=== PATIENT | female | born 1995 | race Caucasian/White ===

== ENCOUNTER 2018-03-23 21:11 | Emergency (ER) | payer SELFPAY ==
[2018-03-23 21:32] VITALS: BP 129/87
[2018-03-23] MEDS ORDERED: HYDROcodone/ACETAMIN 5-325 MG* 1 TAB PO ONE (22:05)
[2018-03-23] MEDS ORDERED: Amoxicillin PO (*) 500 MG CAP PO ONE (22:05)
--- NOTE | 2018-03-23 22:06 | UC ---
Dental HPI - HPI Summary HPI Summary: patient is to urgent care [facility] with complaints of right lower dental pain. She had a filling fall out about 1 year ago. She did not attend to the dentist, pain began severely today. Patient does have some swelling in her right lower jaw - History of Current Complaint Chief Complaint: UCGeneralIllness Stated Complaint: DENTAL COMPLAINT Time Seen by Provider: 03/23/18 21:58 Hx Obtained From: Patient Hx Last Menstrual Period: 03/11/18 ?: No Onset/Duration: Sudden Onset, Still Present, Worse Since - Today Severity: Severe Pain Intensity: 10 Pain Scale Used: 0-10 Numeric Related History: Previous Dental Care on Same Tooth, Swelling - Allergies/Home Medications Allergies/Adverse Reactions: Allergies Allergy/AdvReac Type Severity Reaction Status Date / Time ibuprofen Allergy Rash And Verified 03/23/18 21:28 Itching PMH/Surg Hx/FS Hx/Imm Hx Previously Healthy: Yes - Surgical History Surgical History: None - Family History Known Family History: Positive: Hypertension - Social History Occupation: Employed Full-time Lives: With Family Alcohol Use: None Substance Use Type: None Smoking Status (MU): Former Smoker Review of Systems Constitutional: Negative Skin: Negative Eyes: Negative ENT: Dental Pain Respiratory: Negative Cardiovascular: Negative Gastrointestinal: Negative Genitourinary: Negative Motor: Negative Neurovascular: Negative Musculoskeletal: Negative Neurological: Negative Psychological: Negative Is Patient Immunocompromised?: No All Other Systems Reviewed And Are Negative: Yes Physical Exam Triage Information Reviewed: Yes Appearance: Well-Appearing, Well-Nourished, Pain Distress Vital Signs: Initial Vital Signs Temp 99.1 F 03/23/18 21:23 Pulse 88 03/23/18 21:23 Resp 18 03/23/18 21:23 BP 129/87 03/23/18 21:23 Pulse Ox 99 03/23/18 21:23 Vital Signs Reviewed: Yes Eye Exam: Normal Eyes: Positive: Conjunctiva Clear ENT Exam: Normal ENT: Positive: Normal ENT inspection, Hearing grossly normal, Pharynx normal, TMs normal, Dental tenderness, Uvula midline. Negative: Nasal congestion, Trismus, Muffled voice, Hoarse voice, Sinus tenderness Dental Exam: Other Dental: Positive: Percussion Tenderness @ - Right lower second molar, Gross Decay/Caries @ - Right lower second molar, Abscess @ - Right lower jaw Neck exam: Normal Neck: Positive: Supple, Nontender Respiratory Exam: Normal Respiratory: Positive: Chest non-tender, No respiratory distress, No accessory muscle use Cardiovascular Exam: Normal Cardiovascular: Positive: Pulses Normal, Brisk Capillary Refill Musculoskeletal Exam: Normal Musculoskeletal: Positive: Strength Intact, ROM Intact, No Edema Neurological Exam: Normal Neurological: Positive: Alert, Muscle Tone Normal Psychological Exam: Normal Skin Exam: Normal Dental Complaint Course/Dx - Course Course Of Treatment: Soft diet, amoxicillin, hydrocodone, follow with dentist MILIND on Monday - Differential Dx/Diagnosis Provider Diagnoses: Right lower second molar dental pain with abscess Discharge - Sign-Out/Discharge Documenting (check all that apply): Discharge/Admit/Transfer - Discharge Plan Condition: Stable Disposition: HOME Prescriptions: Amoxicillin PO (*) [Amoxicillin 500 MG CAP*] 500 mg PO TID #29 cap Hydrocodone/Acetaminophen [Hydrocodone-Acetamin 5-325 mg] 1 each PO Q4H PRN #15 tablet MDD 5 PRN Reason: pain Patient Education Materials: Dental Abscess (ED), Toothache (ED) Forms: *Work Release Referrals: Sam Faulkner MD [Primary Care Provider] - Additional Instructions: Follow with dentist first thing Monday - Billing Disposition and Condition Condition: STABLE Disposition: HOME
== END 2018-03-23 22:19 | disposition home or self-care (01) ==
LOC: UCCORT 21:11
DX: K04.7 Periapical abscess without sinus (principal); Z87.891 Personal history of nicotine dependence
CPT/HCPCS: 99212; A9270-GY; G0463

== ENCOUNTER 2019-09-16 16:12 | Emergency (ER) | payer SELFPAY ==
[2019-09-16 17:24] VITALS: BP 128/67
--- NOTE | 2019-09-16 18:24 | UC ---
UC General HPI - HPI Summary HPI Summary: 23-year-old woman comes in with a chief complaint of washing to be tested for sexually transmitted infections. She reports that her partner has had sex with another person and that she wants to make sure she has not contracted any STI' s. Denies any symptoms no pelvic pain or abnormal vaginal discharge. No fevers no chills feels well otherwise. - History of Current Complaint Chief Complaint: UCSTDScreening Stated Complaint: PERSONAL Time Seen by Provider: 09/16/19 18:12 Hx Last Menstrual Period: 09/09/19 Pain Intensity: 0 - Allergy/Home Medications Allergies/Adverse Reactions: Allergies Allergy/AdvReac Type Severity Reaction Status Date / Time ibuprofen Allergy Rash And Verified 09/16/19 17:24 Itching Home Medications: Home Medications NK [No Home Medications Reported] 09/16/19 [History Confirmed 09/16/19] PMH/Surg Hx/FS Hx/Imm Hx Previously Healthy: Yes - Surgical History Surgical History: None - Family History Known Family History: Positive: Hypertension - Social History Alcohol Use: None Substance Use Type: None Smoking Status (MU): Never Smoked Tobacco Review of Systems All Other Systems Reviewed And Are Negative: Yes Constitutional: Positive: Negative Skin: Positive: Negative Eyes: Positive: Negative ENT: Positive: Negative Respiratory: Positive: Negative Cardiovascular: Positive: Negative Gastrointestinal: Positive: Negative Genitourinary: Positive: Negative Motor: Positive: Negative Neurovascular: Positive: Negative Musculoskeletal: Positive: Negative Neurological: Positive: Negative Psychological: Positive: Negative Is Patient Immunocompromised?: No Physical Exam Triage Information Reviewed: Yes Appearance: Well-Appearing, No Pain Distress, Well-Nourished Vital Signs: Initial Vital Signs Temp 98.6 F 09/16/19 17:20 Pulse 101 09/16/19 17:20 Resp 16 09/16/19 17:20 BP 128/67 09/16/19 17:20 Pulse Ox 100 09/16/19 17:20 Vital Signs Reviewed: Yes Eye Exam: Normal Eyes: Positive: Conjunctiva Clear Neck: Positive: Supple Respiratory: Positive: Lungs clear, Normal breath sounds, No respiratory distress Cardiovascular: Positive: RRR Abdomen Description: Positive: Nontender, Soft. Negative: CVA Tenderness (R), CVA Tenderness (L) Musculoskeletal: Positive: Strength Intact, ROM Intact Neurological: Positive: Alert, Muscle Tone Normal Psychological: Positive: Age Appropriate Behavior Skin Exam: Normal Course/Dx - Diagnoses Provider Diagnosis: Encounter for assessment of sexually transmitted disease exposure Discharge ED - Sign-Out/Discharge Documenting (check all that apply): Patient Departure All imaging exams completed and their final reports reviewed: No Studies - Discharge Plan Condition: Stable Disposition: HOME Patient Education Materials: Sexually Transmitted Diseases (ED) Referrals: Sam Faulkner MD [Primary Care Provider] - Additional Instructions: FOLLOW UP WITH YOUR DOCTOR NEEDED. GET REEVALUATED SOONER IF NOT IMPROVING OR YOUR CONDITION WORSENS OR ANY QUESTIONS OR CONCERNS. - Billing Disposition and Condition Condition: STABLE Disposition: Home
[2019-09-17 12:29] LABS: HIV 4th Generation Nonreactive (Nonreactive)
[2019-09-18 13:27] LABS: Chlamydia trachomatis NAA Negative (Negative); Neisseria gonorrhoeae (GC) NAA Negative (Negative)
[2019-09-18 14:08] LABS: Herpes Simplex Virus I IgG AB Positive (Negative); Herpes Simplex Virus II IgG AB Positive (Negative)
--- NOTE | 2019-09-19 07:23 | UC ---
- Progress Note Progress Note: Lab work comes back from September 16, 2019 for sexually transmitted infection screen and an asymptomatic woman. 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 The HSV IgM is negative. 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 Gonorrhea and chlamydia were negative. Nursing to call patient inform her of the results. If she does not know that she is positive for HSV I would recommend having HSV prophylaxis available such as Valtrex either through her primary care doctor or through our urgent care. Course/Dx - Diagnoses Provider Diagnoses: Encounter for assessment of sexually transmitted disease exposure Discharge ED - Sign-Out/Discharge Documenting (check all that apply): Patient Departure All imaging exams completed and their final reports reviewed: No Studies - Discharge Plan Condition: Stable Disposition: HOME Patient Education Materials: Sexually Transmitted Diseases (ED) Referrals: Sam Faulkner MD [Primary Care Provider] - Additional Instructions: FOLLOW UP WITH YOUR DOCTOR NEEDED. GET REEVALUATED SOONER IF NOT IMPROVING OR YOUR CONDITION WORSENS OR ANY QUESTIONS OR CONCERNS. - Billing Disposition and Condition Condition: STABLE Disposition: Home
== END 2019-09-16 18:49 | disposition home or self-care (01) ==
LOC: UCCORT 16:12
DX: Z11.3 Encounter for screening for infections with a predominantly sexual mode of transmission (principal); Z88.8 Allergy status to other drugs, medicaments and biological substances
CPT/HCPCS: 36415; 86694; 86695; 86696; 86780; 87389; 87491; 87591; 99211; G0463

== ENCOUNTER 2020-02-13 16:30 | Emergency (ER) | payer SELFPAY ==
[2020-02-13 16:47] VITALS: BP 116/72
--- NOTE | 2020-02-13 17:49 | UC ---
UC General HPI - HPI Summary HPI Summary: 24 yo female c/o progressive worse pain in both hands, shelton in digits. Pain increasing over the last month, has been waking her up at night. 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 Has not been dropping things more often. Denies paresthesias / dysesthesias. Denies elbow or shoulder pain. Rubs her hands (fingers) at night. No fever / chills. No GI / sob / cp / palpitations. No rash. No sore throat. - History of Current Complaint Chief Complaint: UCGeneralIllness Stated Complaint: BILATERAL HAND PAIN Time Seen by Provider: 02/13/20 17:08 Hx Obtained From: Patient Hx Last Menstrual Period: 01/20/20 Pain Intensity: 8 - Allergy/Home Medications Allergies/Adverse Reactions: Allergies Allergy/AdvReac Type Severity Reaction Status Date / Time ibuprofen Allergy Rash And Verified 02/13/20 16:47 Itching Home Medications: Home Medications predniSONE 10 mg TAB [Deltasone 10 MG TAB*] 10 mg PO DAILY #20 tab 02/13/20 [Rx] PMH/Surg Hx/FS Hx/Imm Hx Previously Healthy: Yes - Surgical History Surgical History: None - Family History Known Family History: Positive: Hypertension - Social History Alcohol Use: None Substance Use Type: None Smoking Status (MU): Never Smoked Tobacco Review of Systems All Other Systems Reviewed And Are Negative: Yes Constitutional: Positive: Negative Skin: Positive: Negative Eyes: Positive: Negative ENT: Positive: Negative Respiratory: Positive: Negative Cardiovascular: Positive: Negative Gastrointestinal: Positive: Negative Genitourinary: Positive: Negative Motor: Positive: Other - see hpi Musculoskeletal: Positive: Arthralgia Neurological/Mental Status: Positive: Other - see hpi Psychological: Positive: Negative Is Patient Immunocompromised?: No Physical Exam Triage Information Reviewed: Yes Appearance: Well-Appearing, Well-Nourished Vital Signs: Initial Vital Signs Temp 98.9 F 02/13/20 16:42 Pulse 85 02/13/20 16:42 Resp 14 02/13/20 16:42 BP 116/72 02/13/20 16:42 Pulse Ox 100 02/13/20 16:42 Vital Signs Reviewed: Yes Eye Exam: Normal ENT Exam: Normal Neck exam: Normal Neck: Positive: Supple Respiratory Exam: Normal Respiratory: Positive: Chest non-tender, Lungs clear, Normal breath sounds, No respiratory distress, No accessory muscle use Cardiovascular Exam: Normal Cardiovascular: Positive: RRR, Pulses Normal, Brisk Capillary Refill Abdominal Exam: Normal Abdomen Description: Positive: Nontender Musculoskeletal Exam: Other - PIP digits 2-4 + swelling, no redness. All digits tender, shelton pip. CR good. Distal LT sensation present. Strength good , but c/o pain with hand grasp Neurological Exam: Normal - grossly nonfocal. See [facility] [place] [facility] Exam: Normal - nad Skin Exam: Normal - nondiaphoretic no visible or reported rash Course/Dx - Course Course Of Treatment: Reviewed coa / tx plan. Suspect arthritis, type unclear. Will check blood work (see orders). Xray results not available. Wet read, no acute issues. Pt advised that final reading by radiologist will be available tomorrow. Will start prednisone taper. Declines work note. Questions as posed answered to the best of my ability. - Diagnoses Provider Diagnosis: Arthritis Discharge ED - Sign-Out/Discharge Documenting (check all that apply): Patient Departure All imaging exams completed and their final reports reviewed: No - Discharge Plan Condition: Stable Disposition: HOME Prescriptions: predniSONE 10 mg TAB [Deltasone 10 MG TAB*] 10 mg PO DAILY #20 tab Patient Education Materials: Arthritis (ED) Referrals: Sam Faulkner MD [Primary Care Provider] - Additional Instructions: Follow up with your primary care physician. Please call his office tomorrow to schedule a follow appointment, when possible. Please seek medical attention for worse or new problems. Minimize ibuprofen when taking prednisone. Avoid curling your hands at night. Hydrate. - Billing Disposition and Condition Condition: STABLE Disposition: Home
[2020-02-14 10:50] LABS: ABS Basophils 0.1 10^3/ul (0-0.2); ABS Eosinophils 0.3 10^3/ul (0-0.6); ABS Lymphocytes 2.2 10^3/ul (1.0-4.8); ABS Monocytes 0.4 10^3/ul (0-0.8); ABS Neutrophils 3.8 10^3/ul (1.5-7.7); Hematocrit 36 % (35-47); Hemoglobin 11.9 g/dL (12.0-16.0); Mean Corpuscular HGB Conc 34 g/dL (31-36); Mean Corpuscular Hemoglobin 30 pg (27-31); Mean Corpuscular Volume 89 fL (80-97); Platelet Count 250 10^3/uL (150-450); Red Blood Count 4.01 10^6 /uL (3.70-4.87); Red Cell Distribution Width 14 % (10-15); White Blood Count 6.8 10^3/uL (3.5-10.8)
[2020-02-14 11:00] LABS: Rheumatoid Factor < 10 IU/mL (<15)
--- NOTE | 2020-02-14 11:21 | UC ---
- Progress Note Progress Note: RADIOLOGY REPORT REVIEWED. NO ACUTE OSSEOUS INJURY. NO CHANGE IN MGMT. Course/Dx - Diagnoses Provider Diagnoses: Arthritis Discharge ED - Sign-Out/Discharge Documenting (check all that apply): Post-Discharge Follow Up All imaging exams completed and their final reports reviewed: Yes - Discharge Plan Condition: Stable Disposition: HOME Prescriptions: predniSONE 10 mg TAB [Deltasone 10 MG TAB*] 10 mg PO DAILY #20 tab Patient Education Materials: Arthritis (ED) Referrals: Sam Faulkner MD [Primary Care Provider] - Additional Instructions: Follow up with your primary care physician. Please call his office tomorrow to schedule a follow appointment, when possible. Please seek medical attention for worse or new problems. Minimize ibuprofen when taking prednisone. Avoid curling your hands at night. Hydrate. - Billing Disposition and Condition Condition: STABLE Disposition: Home
[2020-02-14 11:36] LABS: Anion Gap 8 mmol/L (2-11); BUN/Creatinine Ratio 20.3 (8-20); Blood Urea Nitrogen 14 mg/dL (6-24); C Reactive Protein < 1.00 mg/L (<8.01); CO2 Carbon Dioxide 23 mmol/L (22-32); Calcium 9.9 mg/dL (8.6-10.3); Chloride 108 mmol/L (101-111); EGFR African American 124.4 (>60); EGFR Non-African American 102.8 (>60); Glucose 80 mg/dL (70-100); Potassium 3.7 mmol/L (3.5-5.0); Sodium 139 mmol/L (135-145)
[2020-02-14 12:39] LABS: Erythrocyte Sed Rate 4 mm/Hr (0-19)
--- NOTE | 2020-02-17 07:32 | UC ---
- Progress Note Progress Note: Lyme results are negative If symptoms have persisted recommend follow up with your primary care physician Course/Dx - Diagnoses Provider Diagnoses: Arthritis Discharge ED - Sign-Out/Discharge Documenting (check all that apply): Post-Discharge Follow Up All imaging exams completed and their final reports reviewed: Yes - Discharge Plan Condition: Stable Disposition: HOME Prescriptions: predniSONE 10 mg TAB [Deltasone 10 MG TAB*] 10 mg PO DAILY #20 tab Patient Education Materials: Arthritis (ED) Referrals: Sam Faulkner MD [Primary Care Provider] - Additional Instructions: Follow up with your primary care physician. Please call his office tomorrow to schedule a follow appointment, when possible. Please seek medical attention for worse or new problems. Minimize ibuprofen when taking prednisone. Avoid curling your hands at night. Hydrate. - Billing Disposition and Condition Condition: STABLE Disposition: Home
== END 2020-02-13 18:26 | disposition home or self-care (01) ==
LOC: UCCORT 16:30
DX: M19.042 Primary osteoarthritis, left hand (principal); M19.041 Primary osteoarthritis, right hand; Z88.6 Allergy status to analgesic agent
CPT/HCPCS: 36415; 80048; 85025; 85652; 86140; 86431; 86618; 99212; G0463